=== PATIENT | male | born 1945 | race Two or more races ===

== ENCOUNTER 2016-12-15 11:04 | Inpatient (IN) | payer MEDICARE, OTHER ==
--- NOTE | ~2016-12-15 | HP ---
History And Physical [facility] [id number] [place]. [address] NAME: MONI BEAUCHAMP : 47 STATUS : DIS IN PAT#: [id number] AGE: 71 ADM/REG DATE : 12/15/16 MR#: [id number] REPORT SERV DATE: 12/23/16 DICTATED BY: MARLON STEINBERG DATE: 12/15/16 REPORT STATUS : Draft TRANSCRIBED BY: MODL DATE: 12/15/16 DATE OF ADMISSION: 12/15/2016 REPORT TITLE: General Surgery History and Physical CHIEF COMPLAINT: Strangulated umbilical hernia. 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 Now, the patient in multiorgan system failure on the ventilator, two pressors (40 mcg per minute of Levophed and 0.05 mcg per minute of vasopressin), atrial fibrillation with RVR, anuric with 3+ pitting edema, coagulopathic with an INR of 3.7 with a lactate of 23.9. CT scan shows a strangulated umbilical hernia with pneumatosis of intraabdominal portion of a large section of small bowel and ascites noted. Small bowel significantly dilated proximal to the hernia. The patient currently with a GCS of 3T and so the history was taken from the and the chart note at bedside. The patient is noted to have a nonreducible umbilical hernia with erythematous skin changes over it. He is jaundiced with icteric sclerae. GCS 3T. Not responsive to any painful stimuli and noted to have 3+ pitting edema in the bilateral lower extremities. REVIEW OF SYSTEMS: Unable to obtain secondary to the patient's current status. ALLERGIES: NO KNOWN DRUG ALLERGIES. PAST MEDICAL HISTORY: Hypertension, pancreatitis, kidney stone, type 2 diabetes, pancreatitis, cirrhosis. PAST SURGICAL HISTORY: Lithotripsy and tonsillectomy. SOCIAL HISTORY: Significant for tobacco abuse and drinking. No drugs. He is and lives with here in [place]. FAMILY HISTORY: Diabetes. MEDICATIONS: Include cholecalciferol, folic acid, Lasix, Lantus, multivitamin, Protonix, spironolactone, and thiamine. PHYSICAL EXAMINATION: VITAL SIGNS: Blood pressure 88/43, pulse 120 to 150s, temperature 97.3, respiratory rate 22, 100% on the ventilator. GENERAL: This is a well developed, well nourished, intubated white male, who appears his stated age. HEENT: Normocephalic and atraumatic. PERRLA. Sclerae icteric. ET tube in place. Mucous membranes dry with dried blood perioral. There is an NG tube just putting out coffee- History And Physical [address] [address] NAME: MONI BEAUCHAMP : 47 STATUS : DIS IN PAT#: [id number] AGE: 71 ADM/REG DATE : 12/15/16 MR#: [id number] REPORT SERV DATE: 12/23/16 DICTATED BY: MARLON STEINBERG DATE: 12/15/16 REPORT STATUS : Draft TRANSCRIBED BY: MODMomo DATE: 12/15/16 ground, black-like material. NECK: No lymphadenopathy. Trachea midline. Mildly noticed JVD. CARDIOVASCULAR: Irregularly irregular. LUNGS: Clear to auscultation bilaterally. ABDOMEN: Soft. Grossly distended. Positive tympanic. Umbilical hernia noted, strangulated, nonreducible with erythematous skin changes over. No leaking of any fluid though. No breakdown of skin. EXTREMITIES: Cyanosis noted secondary to pressure. No palpable pulses in bilateral lower extremities, +1 bilateral upper extremities. 3+ pitting edema bilateral lower extremities. MUSCULOSKELETAL: Does not move. NEUROLOGIC: GCS 3T. LABORATORY DATA: White blood cell count 19.5, hematocrit 27.1, platelets 241. Sodium 137, potassium 2.8, chloride 85, bicarb 18, BUN 31, creatinine 3.21, glucose 115. UA showed white blood cells 75, red blood cells 5, bacteria negative. INR 3.7, PTT 39.9, lactate 22.9, calcium 7.6, T-bilirubin 4.8, alkaline phosphatase 200, ALT 132, AST 530, lipase 716. CT scan as mentioned in the HPI. ASSESSMENT/PLAN: 1. This is a 71-year-old male with multiorgan system failure with a strangulated umbilical hernia and significant ischemic bowel noted. I spoke with the extensively about the patient's current medical condition and stated that the patient has strangulated umbilical hernia with extensive ischemic bowel noted to be in the abdomen and this being the cause of his current sickness and now the patient is in multiorgan system failure, I explained to the that the patient is a class C cirrhotic baseline, which has a high mortality and now with the multiorgan system failure. The patient has an extremely poor prognosis and with or without an operation, the patient has a high likelihood of dying. The expressed clear verbal understanding of all these things and states she has no desire for her to undergo an operation, just wishes for him to be made comfortable in light of his current situation. She has instructed me she will call additional family, unable to come to the hospital to say their goodbyes. 2. There is no plan for any surgery as per the 's wishes and we appreciate the consult. We will leave the Critical Care to manage the patient's comfort measures. DICTATED BY: MD RAJ Glass/MILI Marlon Steinberg M.D. / [id number] CC: Marlon Steinberg M.D.
--- NOTE | ~2016-12-15 | CN ---
Consultation Report [facility] [address] [place]. [address] NAME: MONI FRANKLIN : 47 STATUS : ADM IN [facility]#: [id number] AGE: 71 ADM/REG DATE : 12/15/16 MR#: [id number] REPORT SERV DATE: 12/15/16 DICTATED BY: JODI MEMBRENO DATE: 12/15/16 REPORT STATUS : Draft TRANSCRIBED BY: MODL DATE: 12/15/16 NEPHROLOGY CONSULTATION DATE OF CONSULTATION: 12/15/2016 INDICATION FOR CONSULTATION: Acute kidney injury. HISTORY OF PRESENT ILLNESS: Mr. Franklin is a 71-year-old male who presented to the emergency room with abdominal pain and is seen for acute kidney injury. Labs available reflect a creatinine of 0.95 in 2014, rising to 3.21 at admission. He underwent CT scan, which demonstrated small bowel obstruction due to an incarcerated hernia with extensive pneumatosis of the small. Due to his ischemic bowel, his was contacted and the severity of his multiple organ failure was apparently discussed by Surgery with his , and due to the poor prognosis, she had no desire to pursue operative intervention; therefore, there are no plans for surgery at this time. The patient had a lactic acid of 23.9, potassium was 2.8, bicarbonate was 18, calcium 7.6, albumin 2.0, and ammonia level of 58. PAST MEDICAL HISTORY: Prior acute kidney injury, ETOH abuse, history of alcoholic pancreatitis, hypertension, type 2 diabetes mellitus, and anemia. Per chart, history of nephrolithiasis requiring stent intervention, tonsillectomy, circumcision, and lithotripsy. FAMILY HISTORY: Father had diabetes, of [place] at age 72 per chart. Mother age is in her 90s. SOCIAL HISTORY: Former smoker, multiple jobs, served a [employer], [employer], retired from [employer]. Worked in electronics and as an electrician research. Significant drinking in the past. REVIEW OF SYSTEMS: Unable to obtain. ALLERGIES: NONE KNOWN. MEDICATIONS: Vitamin D, folic acid, furosemide, Lantus insulin, multivitamin, Protonix, spironolactone, and vitamin B1. PHYSICAL EXAMINATION: GENERAL: Elderly chronically ill male, on vent, awake. VITAL SIGNS: Temperature 97.3, blood pressure 75/62 on three pressors, pulse 130, and respiratory rate 26 per vent. HEENT: Eyes, no scleral icterus. Pupils minimally reactive. Nares, no lesions. Mouth with ET and OG tube in place. NECK: No thyromegaly, masses, or bruits. Consultation Report [facility] [address] [place] [address] NAME: MONI FRANKLIN : [birth year] STATUS : ADM IN [facility]#: [id number] AGE: 71 ADM/REG DATE : 12/15/16 MR#: [id number] REPORT SERV DATE: 12/15/16 DICTATED BY: JODI MEMBRENO DATE: 12/15/16 REPORT STATUS : Draft TRANSCRIBED BY: MODL DATE: 12/15/16 CHEST/LUNGS: Lateral crackles. Few scattered rhonchi. CARDIAC: Regular tachycardia, unable to appreciate murmur, gallop, or rub. ABDOMEN: Umbilical hernia. There was some mild tenderness, mild distention. Bowel sounds decreased. GENITOURINARY: [place]. RECTAL: Not performed. EXTREMITIES: No edema. No calf tenderness. DERMIS: No rash. No skin lesions. NEUROLOGIC: Unable to evaluate. IMPRESSION: 1. Acute kidney injury secondary to shock/severe sepsis. 2. Small bowel obstruction with pneumatosis of small bowel/ischemic bowel. 3. Refractory shock. 4. Acute respiratory failure, on vent. 5. ETOH abuse. 6. History of alcoholic pancreatitis. 7. History of hypertension. 8. Type 2 diabetes mellitus. 9. Metabolic acidosis/lactic acidosis. 10.Anemia. PLAN: 1. If surgery is not to be performed, all efforts otherwise would be futile and would have no indication to proceed with [employer]. Presently, he is in refractory shock which would make [employer] quite difficult. 2. Concur with comfort measures. /JOSE CARLOSL Jodi Membreno M.D. / [id number] CC: Marlon Steinberg M.D. UNKNOWN
--- NOTE | ~2016-12-15 | CN ---
Consultation Report [address] [place]. [address] NAME: MONI BEAUCHAMP : 47 STATUS : ADM IN PAT#: [id number] AGE: 71 ADM/REG DATE : 12/15/16 MR#: [id number] REPORT SERV DATE: 12/15/16 DICTATED BY: YU RASHID DATE: 12/15/16 REPORT STATUS : Draft TRANSCRIBED BY: MODL DATE: 12/15/16 CONSULTATION DATE OF CONSULTATION: 12/15/2016 CONSULTING PHYSICIAN: Marlon Steinberg M.D. REASON FOR CONSULTATION: Critical care management. HISTORY OF PRESENT ILLNESS: The patient is a 71-year-old gentleman with a past medical history of alcohol use, cirrhosis, chronic pancreatitis, and type 2 diabetes, who presented to the emergency room earlier today with complaints of nausea and vomiting. Currently, the patient is intubated and unable to provide history. His family is not present at the time of my interview. Per the ER physician, he presented to the emergency room with complaints of abdominal pain for the last two weeks associated with some nausea and vomiting over the last day or two. On arrival here, he vomited a large volume black bloody emesis and subsequently aspirated and had to be intubated. At the time of intubation, they were suctioning large amounts of blood and bile from his endotracheal tube. On exam, he had a large necrotic mass around his umbilicus which turned out to be incarcerated umbilical hernia with evidence of pneumatosis on abdominal CT. The patient was in shock, had a central line placed, was placed on vasopressors, and was transferred to the ICU for further management. PAST MEDICAL HISTORY: 1. Alcohol use. 2. Recurrent pancreatitis. 3. Cirrhosis. 4. Hypertension. 5. Type 2 diabetes. 6. Hyperlipidemia. HOME MEDICATIONS: See medication reconciliation form. ALLERGIES: NO KNOWN DRUG ALLERGIES. SOCIAL HISTORY: Unable to obtain secondary to intubation. FAMILY HISTORY: Unable to obtain secondary to intubation. REVIEW OF SYSTEMS: Unable to obtain secondary to intubation. PHYSICAL EXAMINATION: VITAL SIGNS: Temperature 97.3, heart rate 130, respiratory rate 20, blood pressure is 75/62. Consultation Report [place] [id number] [facility] [place]. [address] NAME: MONI BEAUCHAMP : 47 STATUS : ADM IN PAT#: [id number] AGE: 71 ADM/REG DATE : 12/15/16 MR#: [id number] REPORT SERV DATE: 12/15/16 DICTATED BY: YU RASHID DATE: 12/15/16 REPORT STATUS : Draft TRANSCRIBED BY: MILI DATE: 12/15/16 GENERAL: Sedated, intubated. HEENT: ET tube in place. Pupils equal, round, and reactive to light. Extraocular movements intact. NECK: Supple. Nontender. No lymphadenopathy. No thyromegaly. No jugular venous distention. LUNGS: Coarse breath sounds bilaterally. CARDIOVASCULAR: Irregularly irregular, tachycardic. No murmurs, rubs, or gallops. ABDOMEN: Area of incarcerated bowel surrounding umbilicus, decreased bowel sounds. No rebound or guarding. EXTREMITIES: No cyanosis, clubbing, or edema. NEURO: Sedated. PSYCH: Unable to assess. LABS AND IMAGING: Lactic acid 23. Chest x-ray with crowding of pulmonary vasculature as well as bibasilar atelectasis. CBC with a white count of 19,000 with 82% neutrophils. Blood gas with a pH of 7.09, pCO2 of 49, PO2 of 100. Ammonia 58. Metabolic profile with a potassium of 2.8, BUN of 31, and creatinine of 3.2. Troponin 0.1. ASSESSMENT AND PLAN: The patient is a 71-year-old gentleman with past medical history of alcohol use pancreatitis, type 2 diabetes, and cirrhosis who presents with incarcerated umbilical hernia, shock, acute renal failure, atrial fibrillation with rapid ventricular response, and acute respiratory failure. 1. Incarcerated hernia with small bowel pneumatosis. The patient admitted to surgery, likely not going to be a surgical candidate. Currently, awaiting Dr. Steinberg to make a decision on whether or not to proceed with surgery after he discusses with the patient's . 2. Shock. The patient is currently on Levophed and vasopressin. I am adding epinephrine drip and Johnathan-Synephrine if needed. We will empirically cover him with Zosyn and check blood cultures as well as procalcitonin and cortisol level. 3. Acute renal failure, likely acute tubular necrosis, secondary to shock. We will get renal to see the patient, doubt he will be a CRRT candidate, given how unstable he. 4. Acute respiratory failure. We will continue ventilator management. We will get a blood gas, chest x-ray, and wean the ventilator as tolerated. We will provide daily awakening trials to assess mental status while patient is intubated. 5. Atrial fibrillation with rapid ventricular response. We will begin patient on amiodarone drip. We will trend his cardiac markers and check an echocardiogram. 6. The patient will be on SCDs for DVT prophylaxis, Protonix for GI prophylaxis. 7. Total critical care time spent on this patient was 45 minutes. AMOS/MILI Yu Rashid MD Consultation Report [address] [address] NAME: MONI BEAUCHAMP : 47 STATUS : ADM IN [facility]#: [id number] AGE: 71 ADM/REG DATE : 12/15/16 MR#: [id number] REPORT SERV DATE: 12/15/16 DICTATED BY: YU RASHID DATE: 12/15/16 REPORT STATUS : Draft TRANSCRIBED BY: MILI DATE: 12/15/16 / [id number] CC: Marlon Steinberg M.D.
--- NOTE | ~2016-12-15 | DS ---
Discharge Summary [facility] [address] [place]. [address] NAME: MONI BEACUHAMP : 47 STATUS : DIS IN PAT#: [id number] AGE: 71 ADM/REG DATE : 12/15/16 MR#: [id number] REPORT SERV DATE: 01/12/17 DICTATED BY: MARLON STEINBERG DATE: 01/11/17 REPORT STATUS : Draft TRANSCRIBED BY: MODL DATE: 01/11/17 ADMISSION DATE: 12/15/2016 DISCHARGE DATE: 12/16/2016 SUMMARY CHIEF COMPLAINT: Strangulated umbilical hernia. HISTORY OF PRESENT ILLNESS: This 71-year-old male had presented with a two-week history of abdominal pain and two-day history of nausea, vomiting, and abdominal distention. The patient had a history of child's class C cirrhosis and upon presentation to the [facility] Emergency Department was hypotensive and atrial fibrillation with rapid ventricular response, anuric with pitting edema, jaundice, and INR of 3.7, and a lactate of 23.9, and a CT showed strangulated umbilical hernia with pneumatosis and large amount of likely gangrenous intestine. After evaluation and attempted stabilization discussion with hospital course after ER resuscitation and attempted stabilization. Discussion with the patient's in light of the patient's unresponsiveness resulted in her clear understanding of the situation that he was extremely unlikely to live through an operation or without one and she voiced clear understanding of the situation and did not want anything other than comfort measures to be pursued. He was admitted for critical care to manage keeping him comfortable and the patient approximately 15 hours following admission. /MILI Marlon Steinberg M.D. / [id number] CC: Marlon Steinberg M.D.
[2016-12-15 11:01] LABS: BE (BASE EXCESS) -7.6 MEQ/L (0 +/- 2.5); CARBOXYHEMOGLOBIN 2.7 % (0-3); DEVICE NC; HCO3 (ACTUAL BICARBONATE) 14.5 MEQ/L (23-27); HEMOBLOGIN CONTENT 7.9 G/DL (14-18); INSTRUMENT SERIAL # 8087; METHEMOGLOBIN 0.4 % (0-3); O2 CONTENT 10.8 VOL% (18-24); PCO2 (CO2 TENSION) 19 MMHG (35-45); PO2 (O2 TENSION) 119 MMHG (79-93); SAMPLE Arterial; pH 7.49 (7.37-7.43)
[~2016-12-15 11:04] MED LIST: ALEVE220 MG PO; AMARYL4 PO; COSAMIN DS1 TAB PO; FISH OIL1200 MG PO; FISH-EPA1000 MG PO; HCTZ25B PO; HUMALOGMIX SC; HYDROCHLOROT25 MG PO; KLOR-CON 1010 MEQ PO; L40 PO; LANTUS SC; LIPITOR10 PO; MOMUD PO; MULTIVITAMI1 PO; SUPER B COMP OR; VICODINTAB PO; ZESTRIL10 MG PO; ZIAC5 PO
[2016-12-15 11:23] LABS: PARTIAL THROMBO TIME 39.9 SEC (22.5-37.2)
[2016-12-15 11:24] LABS: INTERNATIONAL NORMAL RATI 3.7 UNITS (-)
[2016-12-15 11:25] LABS: ASCORBIC ACID (UR NOT ORDER) NEG (NEG); BILIRUBIN, URINE NEGATIVE (NEG); ER URINALYSIS TAT 0 Hrs 11 Mins; KETONE, URINE TRACE MG/DL (NEG); LEUKOCYTE ESTERASE(NOT OR MOD (NEG); NITRITE (URINE) NEG (NEG); WBC (NOT ORDERED) (RFLEX) 75 (0-5)
[2016-12-15 11:31] LABS: BASOPHILS 0.1 %; BASOPHILS ABSOLUTE 0.02 10/3/uL (0.0-0.16); EOSINOPHILS 0.1 %; EOSINOPHILS ABSOLUTE 0.02 10/3/uL (0.0-0.53); IMMATURE GRANULOCYTES 0.6 %; IMMATURE GRANULOCYTES ABSOLUTE 0.11 10/3/uL (0.0-0.11); LYMPHOCYTES 7.3 %; LYMPHOCYTES ABSOLUTE 1.43 10/3/uL (0.67-4.30); MEAN CORPUSCULAR HEMOGLOB 27.9 pg (26.0-34.0); MEAN PLATELET VOLUME 11.1 fL (9.2-13.0); MONOCYTES 9.2 %; NEUTROPHILS 82.7 %; NEUTROPHILS ABSOLUTE 16.11 10/3/uL (2.02-8.40); NUCLEATED RED BLOOD CELLS 1.2 /100WBC (0-0)
[2016-12-15 11:32] LABS: ER CBC TAT 0 Hrs 21 Mins; HEMATOCRIT 27.1 % (40.0-51.0); HEMOGLOBIN 8.2 g/dL (13.6-17.8); MANUAL DIFF NO %; MEAN CORPUS HGB CONC 30.3 g/dL (32.0-36.0); MEAN CORPUSCULAR VOLUME 92.2 fL (80-100); PLATELET COUNT 241 10/3/uL (150-400); RBC DISTRIBUTION WIDTH 19.9 % (12.0-16.0); RED CELL COUNT 2.94 10/6/uL (4.7-6.1); WHITE BLOOD CELLS 19.5 10/3/uL (4.5-10.5)
[2016-12-15 11:36] LABS: CALCIUM, SERUM 7.6 MG/DL (8.5-10.4); SGPT(ALT) 132 U/L (5-65); SODIUM, SERUM 137 MMOL/L (135-148)
[2016-12-15 11:37] LABS: A/G RATIO 0.6 (0.7-1.9); ALKALINE PHOSPHATASE 200 U/L (45-117); BUN (BLOOD UREA NITROGEN) 31 MG/DL (6-23); CHLORIDE, SERUM 85 MMOL/L (96-112); CO2 (CARBON DIOXIDE) 18 MMOL/L (24-34); CREATININE 3.21 MG/DL (0.70-1.30); GFR AFRICAN AMERICAN 21 ML/MIN (>=60); GFR NON AFRICAN AMERICAN 19 ML/MIN (>=60); GLOBULIN 3.4 G/DL (2.5-4.1); GLUCOSE, SERUM 115 MG/DL (60-99); POTASSIUM, SERUM 2.8 MMOL/L (3.5-5.3); TOTAL BILIRUBIN 4.8 MG/DL (0-1.2); TOTAL PROTEIN 5.4 G/DL (6.0-8.5)
[2016-12-15 11:44] LABS: LACTATE 23.9 MMOL/L (0.3-2.4)
[2016-12-15] MEDS ORDERED: VITAMIN B-1500 MG PO (11:47)
[2016-12-15] MEDS ORDERED: LANTUS SC (11:47)
[2016-12-15] MEDS ORDERED: VITAMIN D400 UNI1 PO (11:47)
[2016-12-15] MEDS ORDERED: THERGRANM PO (11:47)
[2016-12-15] MEDS ORDERED: FOLIC PO (11:48)
[2016-12-15] MEDS ORDERED: PROTONIX PO (11:48)
[2016-12-15] MEDS ORDERED: SPIR100 PO (11:48)
[2016-12-15] MEDS ORDERED: L20 PO (11:48)
[2016-12-15 11:49] LABS: SGOT(AST) 538 U/L (5-40)
[2016-12-15 12:18] LABS: PROCALCITONIN 0.89 ng/mL (<0.5)
[2016-12-15 12:49] LABS: BE (BASE EXCESS) -14.5 MEQ/L (0 +/- 2.5); CARBOXYHEMOGLOBIN 2.3 % (0-3); HCO3 (ACTUAL BICARBONATE) 14.4 MEQ/L (23-27); HEMOBLOGIN CONTENT 7.9 G/DL (14-18); INSTRUMENT SERIAL # 8087; METHEMOGLOBIN 0.8 % (0-3); PCO2 (CO2 TENSION) 49 MMHG (35-45); PO2 (O2 TENSION) 100 MMHG (79-93); pH 7.09 (7.37-7.43)
[2016-12-15 12:50] LABS: ALLENS TEST Pos; MODE CMV; SAMPLE Arterial; TIDAL VOLUME 600 ML
[2016-12-15 16:54] LABS: CARBOXYHEMOGLOBIN 1.3 % (0-3); HCO3 (ACTUAL BICARBONATE) 14.1 MEQ/L (23-27); INSTRUMENT SERIAL # 8083; METHEMOGLOBIN 0.5 % (0-3); MODE CMV; O2 CONTENT 12.4 VOL% (18-24); OPERATOR ID 14382; PCO2 (CO2 TENSION) 37 MMHG (35-45); PO2 (O2 TENSION) 135 MMHG (79-93); SAMPLE Arterial; TIDAL VOLUME 600 ML
== END 2016-12-16 11:04 | disposition expired | DRG 871 ==
LOC: ER 11:04 → MIC 13:56
PROVIDERS: Hospitalist; Specialist
PROC: 5A1935Z Respiratory Ventilation, Less than 24 Consecutive Hours (ICD-10-PCS; principal; 2016-12-15)
PROC: 0BH17EZ Insertion of Endotracheal Airway into Trachea, Via Natural or Artificial Opening (ICD-10-PCS; 2016-12-15)
DX: A41.9 Sepsis, unspecified organism (principal); J96.01 Acute respiratory failure with hypoxia; K42.0 Umbilical hernia with obstruction, without gangrene; N17.0 Acute kidney failure with tubular necrosis; R65.21 Severe sepsis with septic shock; K86.1 Other chronic pancreatitis; E87.2 Acidosis; Z51.5 Encounter for palliative care; Z66 Do not resuscitate; K74.60 Unspecified cirrhosis of liver; K63.89 Other specified diseases of intestine; F10.10 Alcohol abuse, uncomplicated; E11.9 Type 2 diabetes mellitus without complications; Z79.899 Other long term (current) drug therapy; Z79.4 Long term (current) use of insulin; Z82.49 Family history of ischemic heart disease and other diseases of the circulatory system; Z87.891 Personal history of nicotine dependence; D64.9 Anemia, unspecified; E78.5 Hyperlipidemia, unspecified
CPT/HCPCS: 31500; 31720; 36415; 36600; 71010; 74000; 74176; 80053; 81001; 82140; 82330; 82533; 82803; 82805; 82947; 82962; 83605; 83690; 83880; 84132; 84145; 84295; 84484; 85014; 85025; 85610; 85730; 86900; 86901; 86920; 87040; 87070; 87077; 87086; 87150; 87186; 87205; 87641; 93005; 94002; 96365; 96375; 99291; 99292; J0282; J0330; J2370; J2543; J3010; P9016; P9059